=== PATIENT | male | born 1960 | race Caucasian/White ===

== ENCOUNTER 2016-11-06 13:04 | Outpatient (CLI) | payer BC ==
[~2016-11-06] VITALS: Ht 177.8 cm; Wt 77.1 kg
[~2016-11-06 13:04] MED LIST: BUDE10.22 IH; MONT10TA24 PO
--- OUTSIDE RECORDS SUMMARY | 2016-11-06 13:09 | XMS REPORT | Continuity of Care Document ---
Author Author [facility] Organization [facility] Address Unknown Phone Unavailable Care Team Providers Care Notching Press Operator Name Role Phone Unverified, Unverified PCP Unavailable Source Comments Some departments are not documenting in the electronic medical record. If you do not see the information that you expected, contact Release of Information in the Health Information Management department at [phone] for further assistance in locating additional records.[facility] Active Allergies and Adverse Reactions No Known Allergies Current Medications Prescription Sig. Disp. Refills Start End Date Status Date budesonide/formoterol Inhale 2 Puffs by mouth Active (SYMBICORT) 160/4.5 mcg twice daily. HFAA inhalation mometasone (NASONEX) 50 Insert 2 Sprays into nose Active mcg/actuation nasal spray as directed twice daily. Take BID for one month, then reduce to once daily albuterol (VENTOLIN HFA, Inhale 2 Puffs by mouth 1 Inhaler 11 Active PROAIR HFA) 90 every 6 hours as needed 12 mcg/actuation inhaler for Wheezing. montelukast (SINGULAIR) Take 1 Tab by mouth at 30 Tab 11 04/14/20 Active 10 mg tablet bedtime daily. 13 Active Problems Not on file Social History Tobacco Use Types Packs/Day Years Used Date Never Smoker Smokeless Tobacco: Never Used Alcohol Use Drinks/Week oz/Week Comments Yes rare Last Filed Vital Signs Vital Sign Reading Time Taken Blood Pressure 122/69 06/05/2012 2:03 PM CDT Pulse 65 06/05/2012 2:03 PM CDT Temperature 36.8 C (98.2 F) 06/05/2012 2:03 PM CDT Respiratory Rate 16 06/05/2012 2:03 PM CDT Height 1.778 m (5' 10") 06/05/2012 2:03 PM CDT Weight 75.751 kg (167 lb) 06/05/2012 2:03 PM CDT Body Mass Index 23.96 06/05/2012 2:03 PM CDT Oxygen Saturation 98% 06/05/2012 2:03 PM CDT Plan of Care Health Maintenance Due Date Last Done Comments Physical (Comprehensive) 12/29/1967 Exam Pertussis Vaccine 12/29/1971 Tetanus Vaccine 1977 Colorectal Cancer 2010 Screening Influenza Vaccine 06/29/2016 Results from Last 3 Months Not on file
[2016-11-06 13:11] VITALS: BP 116/70
[2016-11-06] MEDS ORDERED: FLUT1AER IH (13:17)
[2016-11-06 13:36] LABS: BASOPHILS # (AUTO) 0.1 10^3/uL (0.0-0.1); BASOPHILS % (AUTO) 1 % (0-10); EOSINOPHILS # (AUTO) 1.1 10^3/uL (0.0-0.3); EOSINOPHILS % (AUTO) 17 % (0-10); LYMPHOCYTES # (AUTO) 1.4 X 10^3 (1.0-4.0); LYMPHOCYTES % (AUTO) 20 % (12-44); MEAN CORPUSCULAR HEMOGLOBIN 31 PG (25-34); MEAN CORPUSCULAR HGB CONC 34 G/DL (32-36); MEAN CORPUSCULAR VOLUME 91 FL (80-99); MONOCYTES # (AUTO) 0.5 X 10^3 (0.0-1.0); MONOCYTES % (AUTO) 8 % (0-12); NEUTROPHILS # (AUTO) 3.7 X 10^3 (1.8-7.8); NEUTROPHILS % (AUTO) 54 % (42-75); PLATELET COUNT 197 10^3/uL (130-400); RED BLOOD COUNT 4.85 10^6/uL (4.35-5.85); RED CELL DISTRIBUTION WIDTH 13.4 % (10.0-14.5); WHITE BLOOD COUNT 6.8 10^3/uL (4.3-11.0)
--- NOTE | 2016-11-06 13:59 | Diagnostic Imaging Report ---
PA and lateral views of the chest Indication: Preoperative evaluation Findings: The lungs demonstrate no focal consolidation. There is a 1 cm low density irregular nodule is projecting over the left lung base on the PA view. No definitive correlate is seen on the lateral projection. Right lung is clear. The heart size is normal. No effusion or pneumothorax. The mediastinum is unremarkable. IMPRESSION: Question of an irregular left basilar nodular density is seen. Evaluation with CT chest is recommended. Dictated by: Dictated on workstation # [id number]
[2016-11-06 14:01] LABS: CALCIUM 9.4 MG/DL (8.5-10.1); CREATININE SERUM 1.35 MG/DL (0.60-1.30)
[2016-11-06 14:02] LABS: BAND NEUTROPHILS 1 %; BASOPHILS % (MANUAL) 0 %; EOSINOPHILS % (MANUAL) 15 %; LYMPHOCYTES % (MANUAL) 22 %; NEUTROPHILS % (MANUAL) 58 %
== END 2016-11-06 13:35 | disposition home or self-care (01) ==
LOC: PREOP 13:04
PROVIDERS: ATTEND Otolaryngology Otolaryngology/Facial Plastic Surgery
DX: Z01.811 Encounter for preprocedural respiratory examination (principal); Z01.812 Encounter for preprocedural laboratory examination; Z11.2 Encounter for screening for other bacterial diseases; J34.2 Deviated nasal septum
CPT/HCPCS: 36415; 71020; 80048; 85007; 85027; 87081

== ENCOUNTER 2016-11-09 06:34 | Day surgery (SDC) | payer BC ==
[~2016-11-09] VITALS: Ht 177.8 cm; Wt 77.1 kg
[~2016-11-09 06:34] MED LIST changes: +FLUT1AER IH
--- OUTSIDE RECORDS SUMMARY | 2016-11-09 06:36 | XMS REPORT | Continuity of Care Document ---
Author Author [facility] Organization [facility] Address Unknown Phone Unavailable Care Team Providers Care Clerk Checker Name Role Phone Unverified, Unverified PCP Unavailable Source Comments Some departments are not documenting in the electronic medical record. If you do not see the information that you expected, contact Release of Information in the Health Information Management department at [phone] for further assistance in locating additional records.[facility] Active Allergies and Adverse Reactions No Known [...]
--- OUTSIDE RECORDS SUMMARY | 2016-11-09 06:37 | XMS REPORT | Continuity of Care Document ---
Author Author [facility] Organization [facility] Address Unknown Phone Unavailable Care Team Providers Care Tieing Machine Operator Name Role Phone Unverified, Unverified PCP Unavailable Source Comments Some departments are not documenting in the electronic medical record. If you do not see the information that you expected, contact Release of Information in the Health Information Management department at [phone] for further assistance in locating additional records.[facility] Active Allergies and Adverse Reactions No [...]
--- NOTE | 2016-11-09 06:41 | Progress Note-Pre Operative ---
Pre-Operative Progress Note H&P Reviewed The H&P was reviewed, patient examined and no changes noted. Date H&P Reviewed: Nov 09, 2016 Time H&P Reviewed: 06:35 Pre-Operative Diagnosis: Deviated Nasal SEptum, Bilat Hyper of the INf Turbs ZANE NAIDU MD Nov 09, 2016 6:41 am
[2016-11-09 07:16] VITALS: BP 104/85
[2016-11-09] MEDS ORDERED: COCAINE HCL 4% 2 ML SYR ONE (07:26)
[2016-11-09] MEDS ORDERED: BSS 15 ML ONE (07:27)
[2016-11-09] MEDS ORDERED: LIDOCAINE/EPI 1%-1:100,000 (XYLOCAINE) 20ML ONE (07:27)
[2016-11-09] MEDS ORDERED: PHENYLEPHRINE 0.5% NASAL SPR (NEO-SYNEPHRINE) REG ONE (07:27)
[2016-11-09] MEDS: LACTATED RINGERS 1,000 ML IV PRN ×2 (07:28→08:39)
[2016-11-09] MEDS ORDERED: DEXAMETHASONE PF 10 MG/ML (DECADRON) VIAL ONE (07:29)
[2016-11-09] MEDS ORDERED: ONDANSETRON 4 MG/2 ML (SDV) Z0FRAN ONE (07:29)
[2016-11-09] MEDS ORDERED: proPOfol 200 MG/20 ML (DIPRIVAN) VIAL IV ONE (07:29)
[2016-11-09] MEDS ORDERED: fentaNYL INJECTION 100 MCG/2 ML AMP ONE (07:29)
[2016-11-09] MEDS ORDERED: MIDAZOLAM 2 MG/2 ML (VERSED) VIAL ONE (07:29)
[2016-11-09] MEDS ORDERED: ROCURONIUM 50 MG/5 ML (ZEMURON) VIAL IV ONE (07:29)
[2016-11-09] MEDS ORDERED: LACTATED RINGERS 1,000 ML IV ONE ×2 (07:29→08:40)
[2016-11-09] MEDS ORDERED: PROMETHAZINE INJ 25 MG/ML (PHENERGAN) AMP IV PRN (08:30)
[2016-11-09] MEDS ORDERED: morphine INJ 10 MG/ML 1ML (SYR OR VIAL) IV PRN ×2 (08:30→09:30)
[2016-11-09] MEDS ORDERED: ONDANSETRON 4 MG/2 ML (SDV) Z0FRAN IV PRN ×2 (08:30→09:30)
[2016-11-09] MEDS ORDERED: MEPERIDINE (DEMEROL) INJ 50 MG/ML IV PRN (08:30)
[2016-11-09] MEDS ORDERED: fentaNYL INJECTION 250 MCG/5 ML AMP IV PRN (08:30)
[2016-11-09] MEDS ORDERED: SEVOFLURANE (ULTANE) 15 ML INHAL SOLN ONE (08:40)
[2016-11-09] MEDS ORDERED: D5 1/2 NS W/KCL 20 MEQ/L 1,000 ML IV SCH (09:10)
--- NOTE | 2016-11-09 09:10 | Progress Note-Post Operative ---
Post-Operative Progess Note Pre-Operative Diagnosis Deviated Nasal SEptum, Bilat Hyper of the INf Turbs Post-Operative Diagnosis same Post-Op Procedure Note Date of Procedure: Nov 09, 2016 Name of Procedure: Nasal Septoplasty, Bilat REduction of the Inferior Turbinates, Bilat REmoval of Nasal Polyps Anesthesia Type get Estimated blood loss (mL): 25cc Specimen(s) collected nasal septum, bilat polyps ZANE NAIDU MD Nov 09, 2016 9:10 am
[2016-11-09] MEDS ORDERED: ACETAMINOPHEN 325 MG TABLET/CAPLET (TYLENOL) PO PRN (09:15)
[2016-11-09] MEDS ORDERED: HYDROcodone/APAP 5 MG/325 MG (LORTAB) TAB PO PRN (09:15)
[2016-11-09] MEDS ORDERED: PROMETHAZINE INJ 25 MG/ML (PHENERGAN) AMP IVP PRN (09:15)
[2016-11-09 10:15] VITALS: BP 129/90
[2016-11-09] MEDS ORDERED: PREDNISONE (10:25)
[2016-11-09] MEDS ORDERED: AMOX-355 PO (10:27)
[2016-11-09] MEDS ORDERED: HYDR-3812 PO (10:27)
[2016-11-09 10:45] VITALS: BP 132/89
[2016-11-09 11:15] VITALS: BP 117/60
[2016-11-09 11:40] VITALS: BP 117/60
== END 2016-11-09 11:40 | disposition home or self-care (01) ==
LOC: SDC 06:34
PROVIDERS: ATTEND Otolaryngology Otolaryngology/Facial Plastic Surgery
DX: J34.2 Deviated nasal septum (principal); J34.3 Hypertrophy of nasal turbinates; J33.9 Nasal polyp, unspecified
CPT/HCPCS: 93005

== ENCOUNTER → 2016-11-15 | Outpatient (CLI) | payer BC ==
[~2016-11-15] MED LIST changes: +AMOX-355 PO; +CATHETER FLUSH 10 ML SYR IV PRN; +HYDR-3812 PO; +IOHEXOL 350 MG/ML 100 ML (OMNIPAQUE 350) VIAL IV ONE; +NS 100 ML (IVPB) BAG IV ONE; +PREDNISONE
--- OUTSIDE RECORDS SUMMARY | 2016-11-15 07:56 | XMS REPORT | Continuity of Care Document ---
Author Author [facility] Organization [facility] Address Unknown Phone Unavailable Care Team Providers Care Throat Cutter Name Role Phone Unverified, Unverified PCP Unavailable Source Comments Some departments are not documenting in the electronic medical record. If you do not see the information that you expected, contact Release of Information in the Health Information Management department at [phone] for further assistance in locating additional records.[facility] Active Allergies and Adverse Reactions No [...]
--- NOTE | 2016-11-15 09:11 | Diagnostic Imaging Report ---
PROCEDURE: CT chest with contrast only. TECHNIQUE: Multiple contiguous axial images were obtained through the chest after administration of intravenous contrast. INDICATION: Left lung base nodule. 75 mL of Omnipaque 350 is administered intravenously. FINDINGS: Reticular nodular density seen on the chest x-ray in the left lung base correlates with focal area of atelectasis or scarring in the inferior lingula adjacent to pericardial fat pad. There is no suspicious pulmonary nodule. No significant consolidation. There is no lung mass. There is a tiny focal scar along the minor fissure seen on axial image 34. Minimal dependent atelectasis in the right lower lobe is seen. The heart size is normal. The thoracic aorta is normal in caliber. There is no mediastinal mass or significantly enlarged lymph nodes seen. No pericardial or pleural effusion. Sections of the upper abdomen appear grossly unremarkable. The osseous structures demonstrate mild degenerative changes. IMPRESSION: The nodular density seen on chest x-ray correlates with a focal scar or atelectasis in the inferior lingula. No suspicious nodule or mass seen. Dictated by: Dictated on workstation # [id number]
== END ==
LOC: RAD 07:53
PROVIDERS: ATTEND Otolaryngology Otolaryngology/Facial Plastic Surgery
DX: R91.1 Solitary pulmonary nodule (principal)
CPT/HCPCS: 71260

== ENCOUNTER → 2016-11-22 | Outpatient (CLI) | payer BC ==
[~2016-11-22] MED LIST changes: -CATHETER FLUSH 10 ML SYR IV PRN; -IOHEXOL 350 MG/ML 100 ML (OMNIPAQUE 350) VIAL IV ONE; -NS 100 ML (IVPB) BAG IV ONE
--- OUTSIDE RECORDS SUMMARY | 2016-11-22 09:27 | XMS REPORT | Continuity of Care Document ---
Author Author [facility] Organization [facility] Address Unknown Phone Unavailable Care Team Providers Care Dynamic Balancer Set Up Worker Name Role Phone Unverified, Unverified PCP Unavailable Source Comments Some departments are not documenting in the electronic medical record. If you do not see the information that you expected, contact Release of Information in the Health Information Management department at [phone] for further assistance in locating additional records.[facility] Active Allergies and Adverse Reactions No [...]
--- NOTE | 2016-11-22 10:04 | Diagnostic Imaging Report ---
Indication: Shortness of breath PA and lateral chest Heart and mediastinum are normal. Lungs are clear. There are no effusions or pneumothoraces. Impression: Negative chest Dictated by: Dictated on workstation # [id number]
== END ==
LOC: RAD 09:23
PROVIDERS: ATTEND Nurse Practitioner
DX: R06.02 Shortness of breath (principal)
CPT/HCPCS: 71020

== ENCOUNTER → 2016-11-27 | Outpatient (CLI) | payer BC ==
--- OUTSIDE RECORDS SUMMARY | 2016-11-27 16:05 | XMS REPORT | Continuity of Care Document ---
Author Author [facility] Organization [facility] Address Unknown Phone Unavailable Care Team Providers Care Bottom Polisher Name Role Phone Unverified, Unverified PCP Unavailable Source Comments Some departments are not documenting in the electronic medical record. If you do not see the information that you expected, contact Release of Information in the Health Information Management department at [phone] for further assistance in locating additional records.[facility] Active Allergies and Adverse Reactions No Known [...]
--- NOTE | 2016-11-27 16:22 | Diagnostic Imaging Report ---
EXAMINATION: PA and lateral views of the chest. INDICATION: Asthma and cough. FINDINGS: There is minimal interstitial thickening seen in the lung bases, similar to prior studies, compatible with scarring. No significant consolidation. The heart size is normal. No effusion or pneumothorax. The mediastinum and anitha appear unremarkable. IMPRESSION: Minimal bibasilar scarring. Dictated by: Dictated on workstation # [id number]
== END ==
LOC: RAD 16:00
PROVIDERS: ATTEND Internal Medicine
DX: R05 Cough (principal); J45.909 Unspecified asthma, uncomplicated
CPT/HCPCS: 71020

== ENCOUNTER → 2017-12-04 | Outpatient (CLI) | payer BC ==
[~2017-12-04] MED LIST changes: +ACHD5005 PO; -HYDR-3812 PO
[2017-12-04 10:52] LABS: BASOPHILS % (AUTO) 1 % (0-10); EOSINOPHILS # (AUTO) 0.2 10^3/uL (0.0-0.3); EOSINOPHILS % (AUTO) 3 % (0-10); HEMATOCRIT 46 % (40-54); HEMOGLOBIN 15.6 G/DL (13.3-17.7); LYMPHOCYTES # (AUTO) 1.2 X 10^3 (1.0-4.0); LYMPHOCYTES % (AUTO) 18 % (12-44); MEAN CORPUSCULAR HEMOGLOBIN 31 PG (25-34); MEAN CORPUSCULAR HGB CONC 34 G/DL (32-36); MEAN CORPUSCULAR VOLUME 90 FL (80-99); MEAN PLATELET VOLUME 10.8 FL (7.4-10.4); MONOCYTES # (AUTO) 0.7 X 10^3 (0.0-1.0); MONOCYTES % (AUTO) 11 % (0-12); NEUTROPHILS # (AUTO) 4.4 X 10^3 (1.8-7.8); NEUTROPHILS % (AUTO) 68 % (42-75); PLATELET COUNT 208 10^3/uL (130-400); RED BLOOD COUNT 5.08 10^6/uL (4.35-5.85); RED CELL DISTRIBUTION WIDTH 12.8 % (10.0-14.5); WHITE BLOOD COUNT 6.5 10^3/uL (4.3-11.0)
[2017-12-06 06:49] LABS: RAGWEED RAST <0.35 kU/L (<0.35)
[2017-12-06 06:50] LABS: ALTERNARIA MOLD RAST <0.35 kU/L (<0.35)
== END ==
LOC: LAB 10:31
PROVIDERS: ATTEND Internal Medicine
DX: J45.909 Unspecified asthma, uncomplicated (principal); R06.83 Snoring; G47.9 Sleep disorder, unspecified
CPT/HCPCS: 36415; 82785; 85025; 86003

== ENCOUNTER → 2017-12-19 | Outpatient (CLI) | payer BC ==
[~2017-12-19] MED LIST changes: +RT-ALBUTEROL SULF 2.5 MG/3 ML PRE-MIX VIAL INH ONE
== END ==
LOC: RT 12:55
PROVIDERS: ATTEND Nurse Practitioner Family
DX: J45.909 Unspecified asthma, uncomplicated (principal)
CPT/HCPCS: 94060; 94726; 94729

== ENCOUNTER → 2019-03-19 | Outpatient (CLI) | payer BC ==
[~2019-03-19] MED LIST changes: -RT-ALBUTEROL SULF 2.5 MG/3 ML PRE-MIX VIAL INH ONE
[2019-03-19 15:27] LABS: BUN/CREATININE RATIO 22; CREATININE SERUM 1.05 MG/DL (0.60-1.30); GFR ESTIMATED > 60
--- NOTE | 2019-03-19 17:41 | Diagnostic Imaging Report ---
PROCEDURE: CT angiography of the chest with contrast. TECHNIQUE: Multiple contiguous axial images were obtained through the chest after uneventful bolus administration of intravenous contrast. 2D reconstructed CTA MIP acquisitions were also performed. Auto Exposure Controls were utilized during the CT exam to meet ALARA standards for radiation dose reduction. DATE: March 19, 2019. COMPARISON: Chest radiograph, November 27, 2016. CT chest, November 15, 2016. INDICATION: 58-year-old male, cough and wheezing. History of asthma. FINDINGS: In the right lower lobe on axial image 97, there is a noncalcified 6 mm pulmonary nodule. This is new since October 2016. There is mild tree-in-bud nodularity in the right lower lobe on axial image 85 which is new. There is a 2 mm noncalcified right upper lobe pulmonary nodule on axial image 37 which is likely unchanged since comparison exam. There are predominantly linear opacities in the left lower lobe on axial image 122 and adjacent sequential images which may reflect atelectasis. There is very mild atelectasis in the lingula. There is no identified pneumothorax. There is no pleural effusion. The central airways are patent. There is no identified pulmonary embolus. The heart is not enlarged. There is no pericardial effusion. There is no evidence of acute aortic injury or aortic dissection. There is normal caliber of the thoracic aorta. The celiac axis, superior mesenteric artery are patent. There is partially imaged low-attenuation right renal mass compatible with benign cysts in its imaged portions which measures up to 6.4 cm in size. Additional evaluation of the imaged portions of the upper abdomen is unremarkable. There is no identified acute bony abnormality. IMPRESSION: CT chest: 1. There is mild tree-in-bud nodularity in the right lower lobe which is new since prior exam and may relate to a process spreading via endobronchial means which is most typically an infectious bronchiolitis or aspiration. 2. New 6 mm right lower lobe pulmonary nodule. Recommend short-term followup CT chest in 2-3 months to evaluate for stability. 3. No identified pulmonary embolus. 4. No evidence of acute aortic injury or aortic dissection. Dictated by: Dictated on workstation # [id number]
== END ==
LOC: RAD 14:54
PROVIDERS: ATTEND Nurse Practitioner Family
DX: J45.50 Severe persistent asthma, uncomplicated (principal); R91.8 Other nonspecific abnormal finding of lung field; K21.9 Gastro-esophageal reflux disease without esophagitis; J30.2 Other seasonal allergic rhinitis
CPT/HCPCS: 36415; 71275; 82565; 84520

== ENCOUNTER 2019-04-23 07:59 | Outpatient (CLI) | payer BC | END 2019-04-23 08:31 | disposition home or self-care (01) | LOC: SLEEP 07:59 | PROVIDERS: ATTEND Nurse Practitioner Family | DX: G47.33 Obstructive sleep apnea (adult) (pediatric) (principal); J45.909 Unspecified asthma, uncomplicated; R06.83 Snoring ==

== ENCOUNTER → 2020-05-19 | Outpatient (CLI) | payer BC, OTHER ==
[~2020-05-19] MED LIST changes: +HOLD METFORMIN - RECEIVED CONTRAST 20 ML VIAL IV SCH; +IOHEXOL 350 MG/ML 100 ML (OMNIPAQUE 350) VIAL IV ONE; +NS 100 ML (IVPB) BAG IV ONE
[2020-05-19 07:48] LABS: BUN/CREATININE RATIO 19; CREATININE SERUM 1.17 MG/DL (0.60-1.30); GFR ESTIMATED > 60
--- NOTE | 2020-05-19 08:55 | Diagnostic Imaging Report ---
EXAMINATION: CT Chest with intravenous contrast. TECHNIQUE: Multiple contiguous axial images were obtained through the chest after the uneventful administration of intravenous contrast. All CT scans use one or more of the following dose optimizing techniques: automated exposure control, MA and/or KvP adjustment based on a patient size and exam type, or iterative reconstruction. HISTORY: Lung nodule. COMPARISON: 03/19/2019. FINDINGS: There is no edema or pneumonia. No pleural effusion. No pneumothorax. No suspicious nodules. The previously seen tree-in-bud nodules have resolved. A few tiny intraparenchymal lymph nodes and dora-fissural lymph nodes are stable. The heart size is normal. There are mild coronary artery calcifications. No pericardial effusion. Aorta is normal in caliber. There is no axillary or supraclavicular lymphadenopathy. There is no mediastinal lymphadenopathy. Limited views of the upper abdomen show simple cysts in the liver and right kidney. There are no suspicious osseus lesions. IMPRESSION: No suspicious pulmonary nodules. Dictated by: Dictated on workstation # [id number]
== END ==
LOC: RAD 07:10
PROVIDERS: ATTEND Internal Medicine Critical Care Medicine
DX: R91.1 Solitary pulmonary nodule (principal); R06.00 Dyspnea, unspecified
CPT/HCPCS: 36415; 71260; 82565; 84520